=== PATIENT | female | born 1995 | race Caucasian/White ===

== ENCOUNTER 2019-01-11 16:15 | Inpatient (IN) | payer OTHER, MEDICAID ==
[~2019-01-11] VITALS: Ht 165.1 cm; Wt 55.0 kg
[2019-01-11] MEDS ORDERED: SUCCINYLCHOLINE CHLORIDE 20 MG/ML 10ML VIAL IV ONE (16:20)
[2019-01-11] MEDS ORDERED: ETOMIDATE (2MG/ML) 20ML VIAL IV ONE (16:20)
[2019-01-11] MEDS ORDERED: MIDAZOLAM DRIP 50 mg/50mL 50 ML IV ONE (16:23)
[2019-01-11] MEDS ORDERED: NOREPINEPHRINE 8 MG/250ML KIT 250 ML IV ONE (16:25)
[2019-01-11 16:29] VITALS: BP 68/45
[2019-01-11] MEDS: MIDAZOLAM DRIP 50 mg/50mL 50 ML IV SCH ×2 (16:30→22:00)
[2019-01-11] MEDS: NOREPINEPHRINE 8 MG/250ML KIT 250 ML IV SCH (16:30)
[2019-01-11] MEDS ORDERED: LORazepam 2MG/ML-1ML VIAL ONE (16:43)
[2019-01-11] MEDS ORDERED: SODIUM CHLORIDE 0.9% 1,000 ML IV ONE ×3 (16:47→18:30)
[2019-01-11] MEDS ORDERED: PROPOFOL 100 ML IV ONE (16:55)
[2019-01-11] MEDS ORDERED: ACETAMINOPHEN 650 mg PER 20 mL UD ONE (16:58)
[2019-01-11] MEDS ORDERED: LEVETIRACETAM INJ 500 MG in D5W 5% 100 ML IV ONE (17:00)
[2019-01-11] MEDS: PROPOFOL 100 ML IV SCH ×2 (17:01→22:00)
[2019-01-11] MEDS ORDERED: ACETAMINOPHEN 650 mg PER 20 mL UD GT ONE (17:15)
[2019-01-11] MEDS ORDERED: LORazepam 2MG/ML-1ML VIAL IV ONE (17:15)
[2019-01-11 17:20] LABS: Basophils # (auto) 0.1 uL; Basophils % (auto) 0.5 % (0.0-2.0); Eosinophils # (auto) 0 uL; Eosinophils % (auto) 0.1 % (0.0-7.0); Hematocrit 40.1 % (36.0-46.0); Hemoglobin 13.3 g/dL (12.2-16.2); Lymphocytes # (auto) 1.5 uL; Lymphocytes % (auto) 14.9 % (10.0-50.0); Mean Corpuscular Hgb Conc. 33.2 g/dL (32.0-36.0); Mean Corpuscular Volume 90.4 fL (80.0-100.0); Monocytes # (auto) 0.4 uL; Monocytes % (auto) 3.5 % (0.0-12.0); Neutrophils # (auto) 8.4 uL; Platelet Count (auto) 329 10^3/uL (140-450); Red Blood Cells 4.44 10^6/uL (4.0-5.20); Red Cell Distribution Width 13.6 % (11.8-14.3); White Blood Cell 10.4 10^3/uL (4.4-10.8)
[2019-01-11 17:34] LABS: INR 1.11 (0.9-1.15); Partial Thromboplastin Time 22.4 sec (23.64-32.05)
[2019-01-11 17:38] LABS: Alanine Aminotransferase 28 U/L (13-56); Albumin 3.7 g/dL (3.4-5.0); Anion Gap 11 (5-15); Aspartate Aminotransferase 24 U/L (15-37); BUN/Creatinine Ratio 10.1; Blood Urea Nitrogen 15 mg/dL (7-18); Calcium 8.5 mg/dL (8.5-10.1); Carbon Dioxide 18 mmol/L (21-32); Chloride 115 mmol/L (98-107); GFR African American 57 mL/min; GFR Non-African American 47 mL/min; Glucose 68 mg/dL (74-106); Potassium 4.2 mmol/L (3.5-5.1); Sodium 144 mmol/L (136-145)
[2019-01-11 17:40] LABS: Alkaline Phosphatase 97 U/L (45-117); Bilirubin, Total 0.9 mg/dL (0.2-1.0); Total Protein 7.5 g/dL (6.4-8.2)
[2019-01-11 17:41] LABS: Salicylate < 1.7 mg/dL (2.8-20.0)
[2019-01-11 17:43] LABS: Lactic Acid w/Reflex 3.4 mmol/L (0.4-2.0)
[2019-01-11 17:49] LABS: Acetaminophen < 2.0 ug/mL (10-30)
[2019-01-11 17:51] LABS: Urine Bacteria FEW /hpf (None Seen); Urine Blood 2+ /uL (Negative); Urine Hyaline Cast FEW /lpf (0 - 2); Urine Mucus FEW (None Seen); Urine Specific Gravity 1.021 (1.001-1.035); Urine WBC <1 /hpf (0 - 5)
[2019-01-11 18:00] LABS: Amphetamine Screen, Urine POSITIVE (NEGATIVE); Barbiturate Scree,Urine NEGATIVE (NEGATIVE); Benzodiazephine Screen, Urine POSITIVE (NEGATIVE); Cannabinoid Screen, Urine NEGATIVE (NEGATIVE); Cocaine Screen, Urine NEGATIVE (NEGATIVE); Opiate Scree,Urine NEGATIVE (NEGATIVE); Phencyclidine Screen, Urine NEGATIVE (NEGATIVE)
[2019-01-11] MEDS ORDERED: ACETAMINOPHEN 650 MG RECT SUPP PR PRN (18:00)
[2019-01-11] MEDS: SODIUM BICARBONATE 50ML VIAL 50 ML in SOD CHL 0.45% 1,000 ML IV SCH (18:00)
[2019-01-11 18:23] VITALS: BP 127/75
[2019-01-11 20:03] VITALS: BP 110/64
[2019-01-11 20:51] VITALS: BP 110/64
[2019-01-11 22:05] VITALS: BP 125/81
[2019-01-11 22:43] LABS: Albumin 3.3 g/dL (3.4-5.0); Potassium 3.8 mmol/L (3.5-5.1)
[2019-01-11] MEDS: FAMOTIDINE (10MG/ML) 2ML VL IV SCH (22:44)
[2019-01-11 22:58] LABS: Bilirubin, Total 1.2 mg/dL (0.2-1.0); Total Protein 6.6 g/dL (6.4-8.2)
[2019-01-11 23:56] VITALS: BP 108/71
[2019-01-12] VITALS (79 sets, daily range): BP systolic 98–131; BP diastolic 63–89
[2019-01-12] MEDS: SODIUM BICARBONATE 50ML VIAL 50 ML in SOD CHL 0.45% 1,000 ML IV SCH ×3 (03:16→21:33)
[2019-01-12] MEDS ORDERED: ACETYLCYSTEINE 200MG/ML IV SOL 150 MG in D5W 5% 250 ML IV ONE (05:00)
[2019-01-12] MEDS ORDERED: ACETYLCYSTEINE 6GM/30ml (200mg/ml) IV SOLN 30ML IV ONE (05:20)
[2019-01-12] MEDS: PROPOFOL 100 ML IV SCH ×3 (05:48→21:33)
[2019-01-12] MEDS ORDERED: ACETYLCYSTEINE IV ONE (06:00)
[2019-01-12] MEDS ORDERED: D5W 5% IV ONE (06:00)
[2019-01-12] MEDS ORDERED: D5W 5% IV SCH ×3 (07:15→10:00)
[2019-01-12] MEDS ORDERED: ACETYLCYSTEINE IV SCH ×3 (07:15→10:00)
[2019-01-12 08:11] LABS: Basophils # (auto) 0 uL; Basophils % (auto) 0.4 % (0.0-2.0); Eosinophils # (auto) 0 uL; Eosinophils % (auto) 0.2 % (0.0-7.0); Hematocrit 39.2 % (36.0-46.0); Hemoglobin 13.2 g/dL (12.2-16.2); Lymphocytes # (auto) 1.6 uL; Lymphocytes % (auto) 18.5 % (10.0-50.0); Mean Corpuscular Hemoglobin 30.6 pg (28.0-32.0); Mean Corpuscular Hgb Conc. 33.6 g/dL (32.0-36.0); Monocytes # (auto) 0.2 uL; Monocytes % (auto) 2.2 % (0.0-12.0); Neutrophils # (auto) 6.9 uL; Neutrophils % (auto) 78.7 % (37.0-80.0); Platelet Count (auto) 199 10^3/uL (140-450); White Blood Cell 8.8 10^3/uL (4.4-10.8)
[2019-01-12 08:28] LABS: INR 1.35 (0.9-1.15); Partial Thromboplastin Time 25.5 sec (23.64-32.05)
[2019-01-12 08:33] LABS: BUN/Creatinine Ratio 14.5; Calcium 7.3 mg/dL (8.5-10.1); Potassium 3.2 mmol/L (3.5-5.1)
[2019-01-12 08:35] LABS: Bilirubin, Total 1.7 mg/dL (0.2-1.0); Total Protein 6.2 g/dL (6.4-8.2)
--- NOTE | 2019-01-12 08:42 | NUR ---
FAMILY MOTHER UPDATED ON PATIENT STATUS. ALL QUESTIONS AND CONCERNS ADDRESSED AT THIS TIME
[2019-01-12] MEDS: FAMOTIDINE (10MG/ML) 2ML VL IV SCH ×2 (10:05→22:08)
[2019-01-12] MEDS: MIDAZOLAM DRIP 50 mg/50mL 50 ML IV SCH ×4 (11:11→22:09)
[2019-01-12] MEDS ORDERED: ACETAMINOPHEN 650 MG RECT SUPP PR PRN (11:30)
[2019-01-12] MEDS ORDERED: POTASSIUM EFFERVESENT TAB 25 MEQ GT ONE (11:30)
--- NOTE | 2019-01-12 11:39 | NUR ---
FAMILY MOTHER, FATHER, AND SISTER AT BEDSIDE
--- NOTE | 2019-01-12 11:41 | NUR ---
DR. GALLEGOS AT BEDSIDE
--- NOTE | 2019-01-12 12:48 | NUR ---
ACETYLCYSTINE PER POISON CONTROL MAY STOP DRIP. DR. GALLEGOS MADE AWARE
--- NOTE | 2019-01-12 12:54 | NUR ---
MEDICATION RECONCILIATION UNABLE TO OBTAIN HOME MEDICATIONS. PER MOTHER WILL LOOK FOR HOME MEDICATIONS AND BRING IN ANY THAT ARE FOUND
[2019-01-12] MEDS: ACETAMINOPHEN 500 MG TAB PO PRN (16:12)
[2019-01-12] MEDS: NOREPINEPHRINE 8 MG/250ML KIT 250 ML IV SCH (17:05)
[2019-01-12] MEDS: fentaNYL Drip 2500mCg/250mlNS 250 ML IV SCH ×2 (17:40→17:53)
--- NOTE | 2019-01-12 19:25 | NUR ---
OPEN REPORT RECEIVED REPORT ON FULL CODE ICU PATIENT FROM DAY SHIFT NURSE. PATIENT IS INTUBATED AND SEDATED ON PROPOFOL AND VERSED. TO SEE GTT'S AND THEIR TITRATIONS PLEASE SEE IV SPREAD SHEET. TRIPLE LUMEN CENTRAL RIGHT INTERNAL JUGULAR CATHETER IS ASYMPTOMATIC, DRESSING IS CLEAN AND INTACT. OGT IN PLACE THAT IS CLAMPED. REESE HUNG BELOW BLADDER FREE OF KINKS DRAINING CLEAR YELLOW URINE TO GRAVITY. PATIENT DOES HAVE NOSE AND BILATERAL NIPPLE PIERCINGS. FOR MORE INFORMATION PLEASE SEE PHYSICAL ASSESSMENT. FALL AND SAFETY PRECAUTIONS ARE IN PLACE. BED SET TO LOWEST POSITION WITH 3X SIDE RALES UP. VITAL SIGNS STABLE.
--- NOTE | 2019-01-12 20:00 | NUR ---
SEDATION VACATION HELD PROPOFOL 2132 PATIENT BECAME RESTLESS WITH CONTINUOUS MOVEMENTS. WAS ABLE TO FOLLOW COMMANDS. WAS RE-STARTED ON PROPOFOL.
[2019-01-13] VITALS (104 sets, daily range): BP systolic 84–112; BP diastolic 44–81
--- NOTE | 2019-01-13 02:00 | NUR ---
BATH BED BATH GIVEN, PATIENT TOLERATED WILL. PARTIAL LINEN CHANGE AT THIS TIME.
[2019-01-13] MEDS: MIDAZOLAM DRIP 50 mg/50mL 50 ML IV SCH ×6 (03:50→23:06)
[2019-01-13 05:03] LABS: Basophils # (auto) 0 uL; Basophils % (auto) 0.3 % (0.0-2.0); Eosinophils # (auto) 0 uL; Eosinophils % (auto) 0.1 % (0.0-7.0); Hematocrit 41.9 % (36.0-46.0); Hemoglobin 14.2 g/dL (12.2-16.2); Lymphocytes # (auto) 0.8 uL; Lymphocytes % (auto) 7.3 % (10.0-50.0); Mean Corpuscular Hemoglobin 30.7 pg (28.0-32.0); Mean Corpuscular Volume 90.5 fL (80.0-100.0); Monocytes # (auto) 0.2 uL; Monocytes % (auto) 1.5 % (0.0-12.0); Neutrophils # (auto) 10.2 uL; Neutrophils % (auto) 90.8 % (37.0-80.0); Nucleated Red Blood Cells % 0.1 %; Platelet Count (auto) 170 10^3/uL (140-450); Red Blood Cells 4.63 10^6/uL (4.0-5.20); Red Cell Distribution Width 13.6 % (11.8-14.3); White Blood Cell 11.3 10^3/uL (4.4-10.8)
[2019-01-13 05:09] LABS: INR 1.55 (0.9-1.15); Partial Thromboplastin Time 28.8 sec (23.64-32.05)
[2019-01-13 05:35] LABS: Albumin 2.9 g/dL (3.4-5.0); BUN/Creatinine Ratio 10.5; Bilirubin, Total 2.2 mg/dL (0.2-1.0); Calcium 7.8 mg/dL (8.5-10.1); Total Protein 6.3 g/dL (6.4-8.2)
[2019-01-13 05:46] LABS: Potassium 2.9 mmol/L (3.5-5.1)
--- NOTE | 2019-01-13 05:59 | NUR ---
CRITICAL LAB VALUE K 2.9 PAGED HOSPITALIST, AWAITING CALL BACK
[2019-01-13] MEDS: PROPOFOL 100 ML IV SCH ×2 (06:18→15:51)
[2019-01-13] MEDS: SODIUM BICARBONATE 50ML VIAL 50 ML in SOD CHL 0.45% 1,000 ML IV SCH (06:22)
--- NOTE | 2019-01-13 06:30 | NUR ---
RE-PAGED HOSPITALIST AWAITING CALL BACK
--- NOTE | 2019-01-13 07:08 | NUR ---
END OF SHIFT GAVE REPORT OF FULL CODE ICU PATIENT TO DAY SHIFT RN. INFORMED RN THAT HOSPITALIST HAS NOT CALLED BACK ON POTASSIUM LEVEL. BED SET TO LOWEST POSITION. ALL SAFETY PRECAUTIONS IN PLACE.
--- NOTE | 2019-01-13 08:07 | NUR ---
POTASSIUM AND BLOOD SUGAR LEVEL HOSPITALIST PAGED TO NOTIFY OF POTASSIUM LEVEL AND BLOOD SUGAR LEVEL. AWAITING CALLBACK
[2019-01-13] MEDS ORDERED: DEXTROSE 50% SYRINGE 50 ML IV ONE (08:50)
[2019-01-13] MEDS: POTASSIUM CHL 20MEQ/100ML 100 ML IV SCH ×2 (08:59→10:40)
[2019-01-13] MEDS ORDERED: DEXTROSE (50%) 50ML SYRG IV ONE (09:00)
[2019-01-13] MEDS ORDERED: D5W/SOD CHL 0.45% 1,000 ML IV SCH (09:00)
--- NOTE | 2019-01-13 09:21 | NUR ---
POISON CONTROL UPDATED ON PATIENT STATUS.
[2019-01-13] MEDS: FAMOTIDINE (10MG/ML) 2ML VL IV SCH ×2 (09:27→21:47)
[2019-01-13 10:41] LABS: Hepatitis A Ab IgM Negative; Hepatitis B Core IgM Negative; Hepatitis B Surface Antigen Negative (Negative)
[2019-01-13 10:42] LABS: Hepatitis C Antibody Negative (Negative)
--- NOTE | 2019-01-13 10:49 | NUR ---
FAMILY AT BEDSIDE. UPDATED ON PATIENT STATUS. ALL QUESTIONS AND CONCERNS ADDRESSED AT THIS TIME
--- NOTE | 2019-01-13 11:59 | NUR ---
DR. GALLEGOS AT BEDSIDE
[2019-01-13] MEDS ORDERED: Jevity 1.2 Cal/Fiber 1 Liter GT SCH (12:00)
[2019-01-13 14:07] LABS: BUN/Creatinine Ratio 7.7; Calcium 7.8 mg/dL (8.5-10.1); Potassium 4.4 mmol/L (3.5-5.1)
[2019-01-13] MEDS: D5W/SOD CHL 0.45%/KCL 40MEQ 1,000 ML IV SCH (14:45)
[2019-01-13] MEDS: PIPERACILLIN-TAZOB 3.375GM 100 ML IV SCH ×2 (14:45→21:47)
--- NOTE | 2019-01-13 16:43 | NUR ---
PARTIAL LINEN CHANGE PERFORMED AT THIS TIME
[2019-01-13] MEDS: NOREPINEPHRINE 8 MG/250ML KIT 250 ML IV SCH (17:05)
[2019-01-13] MEDS: fentaNYL Drip 2500mCg/250mlNS 250 ML IV SCH (17:53)
--- NOTE | 2019-01-13 19:11 | NUR ---
REPORT GIVEN TO JEB LOPEZ TO ASSUME CARE
--- NOTE | 2019-01-13 21:47 | NUR ---
OGT FEEDING OGT FEEDING STARTED WITH JEVITY @ 20 ML/HR INITIALLY, PATENCY CHECKED PRIOR TO FEEDING.
--- NOTE | 2019-01-13 21:54 | NUR ---
TEMP 100.4, COOLING MEASURES DONE
[2019-01-14] VITALS (102 sets, daily range): BP systolic 90–137; BP diastolic 53–95
--- NOTE | 2019-01-14 00:14 | NUR ---
RECEIVED A CALL FROM PT'S MOTHER, UPDATED ON PT'S STATUS AFTER OBTAINING A PASSWORD.
[2019-01-14] MEDS: D5W/SOD CHL 0.45%/KCL 40MEQ 1,000 ML IV SCH ×4 (01:18→23:26)
[2019-01-14] MEDS: ACETAMINOPHEN 500 MG TAB PO PRN (03:39)
--- NOTE | 2019-01-14 03:40 | NUR ---
TEMP 101.1 ,TYLENOL 500MG GIVEN PER OGT. COOLING MEASURES CONTINUED.
--- NOTE | 2019-01-14 03:42 | NUR ---
OGT RESIDUALS, 50 ML, TF HELD.
[2019-01-14 04:22] LABS: Basophils # (auto) 0 uL; Basophils % (auto) 0.2 % (0.0-2.0); Eosinophils # (auto) 0.1 uL; Eosinophils % (auto) 0.4 % (0.0-7.0); Hemoglobin 14.3 g/dL (12.2-16.2); Lymphocytes # (auto) 0.7 uL; Lymphocytes % (auto) 4.9 % (10.0-50.0); Mean Corpuscular Hemoglobin 30.7 pg (28.0-32.0); Mean Corpuscular Volume 90.1 fL (80.0-100.0); Monocytes # (auto) 0.2 uL; Monocytes % (auto) 1.4 % (0.0-12.0); Neutrophils % (auto) 93.1 % (37.0-80.0); Nucleated Red Blood Cells % 0.2 %; Platelet Count (auto) 176 10^3/uL (140-450); Red Blood Cells 4.66 10^6/uL (4.0-5.20); Red Cell Distribution Width 13.6 % (11.8-14.3)
[2019-01-14 04:57] LABS: Albumin 2.6 g/dL (3.4-5.0); BUN/Creatinine Ratio 7.2; Bilirubin, Total 2.1 mg/dL (0.2-1.0); Calcium 7.8 mg/dL (8.5-10.1); Total Protein 6.2 g/dL (6.4-8.2)
--- NOTE | 2019-01-14 05:00 | NUR ---
AM HYGIENE AND ORAL CARE DONE. REPOSITIONED FOR COMFORT.
--- NOTE | 2019-01-14 05:37 | NUR ---
TEMP STILL 101.1, PLACED ON COOLING BLANKET
[2019-01-14] MEDS: PIPERACILLIN-TAZOB 3.375GM 100 ML IV SCH ×3 (05:39→21:25)
--- NOTE | 2019-01-14 07:00 | NUR ---
LATEST TEMP 99.7
--- NOTE | 2019-01-14 07:18 | NUR ---
COOLING MEASURES IN PLACE
[2019-01-14] MEDS: MIDAZOLAM DRIP 50 mg/50mL 50 ML IV SCH ×3 (09:02→23:27)
--- NOTE | 2019-01-14 09:05 | NUR ---
FAMILY UPDATED ON PATIENT STATUS. ALL QUESTIONS AND CONCERNS ADDRESSED AT THIS TIME
[2019-01-14] MEDS: FAMOTIDINE (10MG/ML) 2ML VL IV SCH ×2 (09:39→21:25)
--- NOTE | 2019-01-14 10:31 | NUR ---
DR. BENJAMIN AT BEDSIDE
--- NOTE | 2019-01-14 11:29 | NUR ---
WOUND CARE NURSE AT BEDSIDE TO ASSESS PATIENT
--- NOTE | 2019-01-14 11:29 | NUR ---
NUTRITION ASSESSMENT NOTES Please refer to link notes of nutrition screen form filed under the intervention section of the plan of care for further details. Est. Needs: 1550 kcal to 1850 kcal (25-30 kcal/kgBW), 62 gms to 74 gms pro (1.0-1.2 gms/kgBW). Will continue to monitor pertinent labs and reassess nutrient need prn Thank you. Addendum: 01/14/19 at [address] Amended: Links added.
--- NOTE | 2019-01-14 11:35 | NUR ---
WOUND CARE NOTE: Wound care in to see patient for skin assessment due to intubation status and low Louis score of 12, putting patient to high risk for skin breakdown. Patient is 23 y/o female with admitting diagnosis of Drug Overdose. Patient is resting in ICU bed in Rm. 112. Patient is intubated, sedated, and mechanically ventilated. Patient appears to be in no pain using Gunn Khan Faces Pain Scale. Skin assessment done with the assistance of patient's nurse JESSICA Rosario. No wound noted other than intact 2x1cm oval light brown pigmented skin to distal L medial forearm appears to be a carlos eduardo; area is clean and dry, left open to air. No pressure injury noted. Repositioned patient for comfort facing her Lt side, redistributed pressure points with pillows. Reapplied [place] foam boots to patient's BLE. Patient tolerated well. JESSICA Rosario at bedside. RECOMMENDATIONS: BID/PRN cleaning cleaning and application of Barrier cream to sacral/buttocks as preventative per MD order, Dietary consult for low Louis score, frequent turning and repositioning schedule as condition permits, redistribute pressure points with pillows, elevate heels on pillows/foam boots to BLE, continue monitoring by wound care while patient is mechanically ventilated. Addendum: 01/14/19 at 1514 by Sharlene Nsah RN Amended: Links added.
[2019-01-14] MEDS: PROPOFOL 100 ML IV SCH ×2 (15:17)
--- NOTE | 2019-01-14 16:18 | NUR ---
PARTIAL LINEN CHANGE PERFORMED AT THIS TIME
[2019-01-14] MEDS: NOREPINEPHRINE 8 MG/250ML KIT 250 ML IV SCH (17:05)
--- NOTE | 2019-01-14 17:10 | NUR ---
assessment Patient is a 23 year old female who is on a vent. No family at bedside. I will try and call patients mother Kaylie for assessment. Patients post discharge needs to be determined after extubation. Addendum: 01/14/19 at 1711 by Payal KIM Amended: Links added.
[2019-01-14] MEDS: fentaNYL Drip 2500mCg/250mlNS 250 ML IV SCH (17:53)
--- NOTE | 2019-01-14 19:11 | NUR ---
REPORT GIVEN TO JEB LOPEZ TO ASSUME CARE
--- NOTE | 2019-01-14 19:15 | NUR ---
OPENING NOTES ASSUMED CARE, LAYING ON BED WITH HER EYES CLOSED, STILL ON VENT, AC MODE, SEDATION WITH VERSED AND PROPOFOL INFUSING IN THE RIGHT IJ, OGT IN PLACE, TF ON HOLD, REESE CATHETER DRAINING TO A CLEAR LIGHT BRUNA URINE. BED IN LOWEST POSITION WITH SIDE RAILS UP, BED ALARM ON. WILL CONTINUE CARE.
--- NOTE | 2019-01-14 20:00 | NUR ---
OGT RESIDUAL, ABOUT 30 ML, HELD TF.
--- NOTE | 2019-01-14 21:01 | NUR ---
FAMILY AT BEDSIDE, UPDATED ON PT'S STATUS
[2019-01-15] VITALS (101 sets, daily range): BP systolic 88–123; BP diastolic 45–88
--- NOTE | 2019-01-15 04:00 | NUR ---
GASTRIC RESIDUAL OF 60 ML FROM OGT NOTED. TF STILL ON HOLD
--- NOTE | 2019-01-15 04:00 | NUR ---
MORNING CARE DONE, COMPLETE LINENS CHANGED. REPOSITIONED FOR COMFORT. ORAL CARE DONE.
[2019-01-15 04:23] LABS: Basophils # (auto) 0 uL; Basophils % (auto) 0.3 % (0.0-2.0); Eosinophils # (auto) 0.1 uL; Hematocrit 41.4 % (36.0-46.0); Hemoglobin 13.8 g/dL (12.2-16.2); Lymphocytes # (auto) 1.2 uL; Lymphocytes % (auto) 9.3 % (10.0-50.0); Mean Corpuscular Hemoglobin 30.2 pg (28.0-32.0); Mean Corpuscular Hgb Conc. 33.3 g/dL (32.0-36.0); Mean Corpuscular Volume 90.6 fL (80.0-100.0); Monocytes # (auto) 0.4 uL; Neutrophils # (auto) 11.5 uL; Neutrophils % (auto) 86.4 % (37.0-80.0); Platelet Count (auto) 200 10^3/uL (140-450); Red Blood Cells 4.58 10^6/uL (4.0-5.20); White Blood Cell 13.3 10^3/uL (4.4-10.8)
[2019-01-15 04:45] LABS: Albumin 2.4 g/dL (3.4-5.0); BUN/Creatinine Ratio 7.3; Calcium 7.8 mg/dL (8.5-10.1); INR 1.07 (0.9-1.15); Partial Thromboplastin Time 56.2 sec (23.64-32.05); Potassium 3.8 mmol/L (3.5-5.1)
[2019-01-15 04:54] LABS: Bilirubin, Total 1.6 mg/dL (0.2-1.0); Total Protein 6.1 g/dL (6.4-8.2)
[2019-01-15] MEDS: PIPERACILLIN-TAZOB 3.375GM 100 ML IV SCH ×3 (06:32→22:00)
--- NOTE | 2019-01-15 08:00 | NUR ---
INITIAL/ONGOING ASSESSMENT: Patient currently sedated as per documented in IV spreadsheet, tolerating mechanical ventilation. Catheter care provided, noted white vaginal discharge probable yeast infection; will address with physician during rounds. Patient with no signs of distress at this time.
--- NOTE | 2019-01-15 08:49 | NUR ---
FAMILY PHONE CALL: Spoke with patient's mother Kaylie via phone call, password verified. Inquired on patient condition. Discussed with Kaylie plan of care for the day to include sedation vacation to assess neurological status, informed her that the Levophed drip had been titrated down with a goal to titrate off by end of shift as tolerated. Verbalized understanding, states that they will be in to visit in a few hours.
--- NOTE | 2019-01-15 10:00 | NUR ---
VERSED OFF: Titrated patient off of Versed.
[2019-01-15] MEDS: D5W/SOD CHL 0.45%/KCL 40MEQ 1,000 ML IV SCH (10:07)
[2019-01-15] MEDS: FAMOTIDINE (10MG/ML) 2ML VL IV SCH ×2 (10:07→22:00)
--- NOTE | 2019-01-15 10:49 | NUR ---
POISON CONTROL: Received call from poison control for update on patient condition. Updated on neurological status, informed them that patient remains non-responsive; however, Versed was titrated off today and patient remains on low dose diprivan. Current vital signs, as well as LFT's and CO2 and creatine levels provided. Recommendation is continue supportive care and to continue to titrate off of sedation as appropriate.
--- NOTE | 2019-01-15 13:12 | NUR ---
FAMILY: Patient's mother, father and sister at bedside. Updated on condition, informed them that patient is off of Versed and only on low dose Diprivan, as well as low dose Levo. Discussed plan to leave patient off of Versed and use other sedation medication if needed. Family expressed concern with possibility of patient's friends attempting to come to visit posing as family, assured them that every measure will be taken to ensure only the family members present are granted access for visitation. Discussed with family suicide precautions if and when patient is successfully weaned from the ventilator, also discussed with them tele psychiatric evaluation when patient is coherent. Family verbalized understanding of all topics discussed.
--- NOTE | 2019-01-15 14:30 | NUR ---
AT BEDSIDE: Dr. Mendoza at bedside, spoke with patient's parents. Patient currently off of sedation, verbal order received to perform weaning trial if patient becomes awake.
[2019-01-15] MEDS: NOREPINEPHRINE 8 MG/250ML KIT 250 ML IV SCH (17:05)
[2019-01-15] MEDS: PROPOFOL 100 ML IV SCH (17:05)
[2019-01-15] MEDS: fentaNYL Drip 2500mCg/250mlNS 250 ML IV SCH (17:53)
[2019-01-15] MEDS ORDERED: FLUCONAZOLE 200MG/100ML 100 ML IV ONE ×2 (20:15→22:00)
--- NOTE | 2019-01-15 20:30 | NUR ---
pt has slightly elevated temp cooling measures in place. will monitor
--- NOTE | 2019-01-15 21:15 | NUR ---
pt temp is elevated additional cooling measures cooling blanket is in place. will monitor
--- NOTE | 2019-01-15 23:00 | NUR ---
family at bedside pts mother and father at bedside, all of their questions and concerns have been addressed at this time. parents verbalized understanding and stated no other questions right now.
--- NOTE | 2019-01-15 23:30 | NUR ---
cooling measures are working will continue to Monitor
[2019-01-16] VITALS (95 sets, daily range): BP systolic 91–138; BP diastolic 52–92
--- NOTE | 2019-01-16 01:15 | NUR ---
hygiene pt was given a full bed bath and linin change. pt tolerated care. will continue to care for and monitor
--- NOTE | 2019-01-16 01:15 | NUR ---
cooling measures are working, pt temp is wnl
--- NOTE | 2019-01-16 03:15 | NUR ---
HYGIENE FULL MALISSA CHANGED, PT TOLERATED CARE. NO SS OF DISTRESS NOTED AT THIS TIME.WILL CONTINUE TO MONITOR. Addendum: 01/17/19 at 0528 by LEONIE GARRIDO RN RN WRONG DATE ENTERED
--- NOTE | 2019-01-16 03:17 | NUR ---
sister called sister naila called provided password and was given an update on pts status. star states no other questions.
[2019-01-16 03:37] LABS: Basophils # (auto) 0 uL; Basophils % (auto) 0.3 % (0.0-2.0); Eosinophils # (auto) 0 uL; Eosinophils % (auto) 0.5 % (0.0-7.0); Hematocrit 39.5 % (36.0-46.0); Hemoglobin 13.4 g/dL (12.2-16.2); Lymphocytes # (auto) 1.2 uL; Lymphocytes % (auto) 13.5 % (10.0-50.0); Mean Corpuscular Hemoglobin 30.7 pg (28.0-32.0); Mean Corpuscular Volume 90.2 fL (80.0-100.0); Monocytes # (auto) 0.6 uL; Monocytes % (auto) 6.9 % (0.0-12.0); Neutrophils # (auto) 6.9 uL; Neutrophils % (auto) 78.8 % (37.0-80.0); Platelet Count (auto) 223 10^3/uL (140-450); Red Blood Cells 4.38 10^6/uL (4.0-5.20); Red Cell Distribution Width 14.1 % (11.8-14.3); White Blood Cell 8.8 10^3/uL (4.4-10.8)
[2019-01-16 03:51] LABS: Albumin 2.4 g/dL (3.4-5.0); Calcium 8.4 mg/dL (8.5-10.1); Magnesium 2.1 mg/dL (1.6-2.6); Potassium 4.1 mmol/L (3.5-5.1)
[2019-01-16 04:00] LABS: BUN/Creatinine Ratio 8.1; Bilirubin, Total 1.4 mg/dL (0.2-1.0); Phosphorus 2.7 mg/dL (2.5-4.90); Total Protein 6.6 g/dL (6.4-8.2)
--- NOTE | 2019-01-16 04:09 | NUR ---
rt is at bedside
--- NOTE | 2019-01-16 09:33 | NUR ---
Resumed care at 0730, orders reviewed and ongoing assessments being done. Being treated for multiple problems and remains intubated. Sedation weaned off yesterday. Does withdraw while rendering care and attempts to open eyelids when spoken to, but not able to follow any other directions. Levophed infusing for BP support, will titrate as appropriate. If awakens and is a candidate for CPAP trial, will initiate. Tube feeding turned off. Residual check, full syringe 100ml. Will maintain off for now. Parents Kaylie and Agapito have arrived to visit. Updated them on plan of care.
[2019-01-16] MEDS: FAMOTIDINE (10MG/ML) 2ML VL IV SCH ×2 (10:22→21:57)
--- NOTE | 2019-01-16 12:16 | NUR ---
Nutrition Follow-up Notes Wt.: 64.7 kg today. Pt's intubated, non-sedated, currently NPO with EN support temporarily held this morning for possible CPAP trial. Pt's previously on Jevity 1.2 Sam @ 20 ml/hr providing 576 kcal, 27 gms pro [id number] ml free water. Noted pt's for active Cardiology and GI consults. Est. Needs: 1550 kcal to 1850 kcal (25-30 kcal/kgBW), 62 gms to 74 gms pro (1.0-1.2 gms/kgBW). Will continue to monitor pertinent labs and reassess nutrient need prn Labs: Cl 109 H, BUN 5 L, Ca 8.4 L, Tot mychal 1.4 H, AST 173 H, ALT 1587 H, ALP 198 H, Creatine kinase 232 H, Alb 2.4 L Skin: Louis scale 12, high risk, skin intact per collision repair technician. GI: Pt's no bowel activity since 01/11/19 per collision repair technician. PES: Increased nutrient needs r/t current medical condition aeb intubated, sedated, mod hypoalbuminemia, NPO with EN support. Altered nutrition related lab values r/t current/chronic medical condition aeb hyperchloremia, low BUN, elev. LFTs, Creatine kinase,hyperbilirubinemia, hypocalcemia and mod hypoalbuminemia Will continue to monitor NPO status, skin status, pertinent labs and weight trend. F/u in 2 to 3 days. Rec.: 1.) Advance gradually to oral diet (Soft Low Fat) when medically appropriate. 2.) If still NPO, consider to resume EN support at lower rate of Jevity 1.2 Sam @ 55 ml/hr goal rate as tolerated when medically appropriate. 3.) If Albumin continues trending down, consider Prostat 1 pkt BID. 4.) Refer to RD for further nutrition educ. and weight monitoring upon discharge. 5.) Continue current plan of care.
--- NOTE | 2019-01-16 12:44 | NUR ---
Q2 assessments, moving more in bed and when ask to open eyes, eyes are opening wider, but unable to sustain eye contact or follow any other instructions. Maintaining cooling measures (cooling blanket and cold compress on head). Rectal probe in place with temperature measuring 99.9-100.1. Parents back in to visit.
[2019-01-16] MEDS: PIPERACILLIN-TAZOB 3.375GM 100 ML IV SCH ×3 (13:44→21:57)
--- NOTE | 2019-01-16 14:45 | NUR ---
DR. Mendoza was in to round for Dr. Mccoy today. Parents Kaylie and Agapito at bedside. Discussed condition and plan of care. Remains sleepy and continues to open eyes when ask to but not staying awake. Spoke with Jannie via phone from poison control and gave update on condition. Continue current plan of care. They will follow up daily.
[2019-01-16] MEDS: D5W/SOD CHL 0.45%/KCL 40MEQ 1,000 ML IV SCH ×3 (15:12→20:00)
[2019-01-16] MEDS: MIDAZOLAM DRIP 50 mg/50mL 50 ML IV SCH (17:05)
[2019-01-16] MEDS: PROPOFOL 100 ML IV SCH (17:05)
[2019-01-16] MEDS: NOREPINEPHRINE 8 MG/250ML KIT 250 ML IV SCH (17:05)
--- NOTE | 2019-01-16 17:09 | NUR ---
Cool bath given and changed partial linen. Rectal probe measuring 99.1-99.9. No skin breakdown, both upper arms markedly red, no change since arrival of shift. Noted very small abrasion to right and left lower lip due to EET. Maintaining cooling measures. Continues to open eyes on command, but no sustain eye contact. She does squeeze hand on command, strong left and right legal associate. Reorient to staff, place and situation. Parents have left for the day.
[2019-01-16] MEDS: fentaNYL Drip 2500mCg/250mlNS 250 ML IV SCH (17:53)
--- NOTE | 2019-01-16 19:00 | NUR ---
OPEN ASSUMED CARE OF FEMALE PT LAYING IN BED ORALLY INTUBATED, NOT SEDATED. PT IS CONNECTED TO ICU MONITORS VS ARE STABLE. PT SPONTANEOUSLY OPENS EYES BUT DOES NOT KEEP THEM OPEN. PT HAS OGT CLAMPED. PT FOLLOWS COMMANDS. PT HAS A R IJ TRIPLE LUMEN CATH, IV IS PATENT, NO SS OF REDNESS OF SWELLING AT THIS TIME. DRESSING IS CLEAN AND DRY. PT HAS R FA IV, PATENT, FLUSHES WITHOUT RESISTANCE. DRESSING IS CLEAN AND DRY NO SS OF REDNESS OR SWELLING AT THIS TIME. PT HAS A RECTAL THERMOMETER IN PLACE. PT HAS REESE HANGING BELOW BLADDER, PATENT DRAINING BRUNA URINE TO GRAVITY. PT HAS PILLOWS IN PLACE UNDER [place] PROMINENCES TO OFFLOAD PRESSURE FOR COMFORT AND SAFETY. BED IS IN THE LOWEST POSITION, WHEELS ARE LOCKED, HOB 40*, PT IS IN VIEW OF RN STATION, WILL CONTINUE TO CARE FOR AND MONITOR.
--- NOTE | 2019-01-16 19:45 | NUR ---
FAMILY AT BEDSIDE
--- NOTE | 2019-01-16 23:40 | NUR ---
PT REMAINS IN BED VENTILATED PT REMAINS IN BED INTUBATED. NO SS OF DISTRESS NOTED AT THIS TIME. VS STABLE. WILL CONTINUE TO CARE FOR.
[2019-01-17] VITALS (41 sets, daily range): BP systolic 94–132; BP diastolic 58–94
--- NOTE | 2019-01-17 01:48 | NUR ---
COOLING MEASURES ARE IN PLACE PT HAS ELEVATED TEMP 99.8, COOLING MEASURES ARE IN PLACE. WILL CONTINUE TO CARE FOR AND MONITOR
--- NOTE | 2019-01-17 03:15 | NUR ---
HYGIENE FULL MALISSA CHANGED, PT TOLERATED CARE. NO SS OF DISTRESS NOTED AT THIS TIME.WILL CONTINUE TO MONITOR.
--- NOTE | 2019-01-17 05:30 | NUR ---
SUCTION CANISTERS AND TUBING CHANGED
[2019-01-17] MEDS: D5W/SOD CHL 0.45%/KCL 40MEQ 1,000 ML IV SCH ×2 (06:00→12:45)
[2019-01-17] MEDS: PIPERACILLIN-TAZOB 3.375GM 100 ML IV SCH ×2 (06:00→14:00)
--- NOTE | 2019-01-17 07:31 | NUR ---
END SHIFT PT VS STABLE, NO SS OF DISTRESS NOTED AT THIS TIME. REPORT AND CARE ENDORSED TO DAY RN.
--- NOTE | 2019-01-17 09:35 | NUR ---
Respiratory note: BILATERAL BS ARE CLEAR THROUGHOUT, SUCTION NOT INDICATED AT THIS TIME. FAMILY AT BEDSIDE. PT REMAINS GROGGY AND UNABLE TO FOLLOW RESPIRATORY COMMANDS TO ACHIEVE ADEQUATE WEANING PARAMETERS.UNABLE TO PROCEED WITH CPAP AT THIS TIME. ALARMS VERIFIED AND AUDIBLE. NO VENT CHANGES ORDERED AT THIS TIME, WILL CONTINUE TO MONITOR ORDERED.
[2019-01-17] MEDS: FAMOTIDINE (10MG/ML) 2ML VL IV SCH (10:20)
--- NOTE | 2019-01-17 11:44 | NUR ---
DR. PAYTONHA IN TO SEE PT. ORDERED FOR PT TO BE EXTUBATED. RT NOTIFIED, PT BEEN FOLLOWING COMMANDS SINCE THIS AM, BUT WAS A LITTLE WEAK TO BE PLACED ON CPAP. PT'S PARENTS WALKING IN DOWN HALLWAY AND ARE AWARE OF POC AND AGREE WITH POC . PT'S TUBE FEEDING HAS BEEN ON HOLD SINCE 0700.
--- NOTE | 2019-01-17 11:45 | NUR ---
Respiratory note: PT EXTUBATED PER DR GALLEGOS. PT PLACED ON 30% AEROSOL. NO STRIDOR NOTED. NO SIGNS OR SYMPTOMS OF RESPIRATORY DISTRESS. RN AND FAMILY AT BEDSIDE.
--- NOTE | 2019-01-17 12:00 | NUR ---
S/P EXTUBATION DOING WELL ON CM AT 30% FIO2. REPOSITIONED FOR COMFORT, PT'S PARENTS REMAIN AT BED SIDE. MITTENS REMOVED. PT IS CRYING. ENCOURAGED HER TO CRY. AND TO SAVE HER VOICE FOR LATER AND TO KEEP HER COOL MIST MASK ON FOR THE TIME BEING. PT NODDED HEAD IN AGREEMENT.
--- NOTE | 2019-01-17 12:45 | NUR ---
RECEIVED REPORT FROM KYRIE LOPEZ AND ASSUMED CARE OF PATIENT. PATIENT'S PARENTS AT BEDSIDE. PATIENT ALERT ET COOPERATIVE, SLOW TO RESPOND BUT FOLLOWS COMMANDS. PATIENT ORIENTED TO SELF ET AWARE HAS BEEN EXTUBATED. PATIENT NOTED TO BE RESTLESS, MOVING ALL EXTREMITIES WITHOUT DIFFICULTY. PUPILS 4MM ET BRISK. O2 ON PER COOL MIST MASK 30%. SEE PHYSICAL ASSESSMENT AND IV SPREADSHEET.
[2019-01-17] MEDS: fentaNYL Drip 2500mCg/250mlNS 250 ML IV SCH (13:27)
--- NOTE | 2019-01-17 13:33 | NUR ---
POISON CONTROL PHONES - UPDATED ON PATIENT CONDITION, STATES WILL SIGN OFF NOW THAT PATIENT IS EXTUBATED AND APPEARS IN STABLE CONDITION.
--- NOTE | 2019-01-17 13:45 | NUR ---
COOL MIST O2 REMOVED ET O2 APPLIED AT 2L PER NC - SAO2 100%. WILL CONTINUE TO MONITOR SAO2. FEW ICE CHIPS GIVEN - PATIENT NOTED TO HAVE DIFFICULTY SWALLOWING - COUGHING NOTED AFTERWARDS.
--- NOTE | 2019-01-17 15:17 | NUR ---
PATIENT'S PARENTS DEPART
--- NOTE | 2019-01-17 15:45 | NUR ---
SAO2 99-100% WITH O2 ON AT 2L PER NC. O2 REMOVED. PATIENT REMAINS RESTLESS. PATIENT MOUTHS WORDS ONLY WITH VERY FAINT WHISPERING - SPEECH INCOMPREHENSIBLE. NODS HEAD APPROPRIATELY TO YES, NO QUESTIONS. PATIENT CONTINUES TO COUGH WHEN VERY SMALL AMTS ICE CHIPS GIVEN. INTERVENTIONAL NURSE USING STRICT ASPIRATION PRECAUTIONS.
--- NOTE | 2019-01-17 16:40 | NUR ---
COUGHING WITH ICE CHIPS CONTINUES DESPITE STRICT ASPIRATION PRECAUTIONS, CALL PLACED TO DR DUBOSE.
--- NOTE | 2019-01-17 17:05 | NUR ---
DR DUBOSE RETURNS CALL - INFORMED OF PATIENT'S DYSPHAGIA AND COUGHING WITH ICE CHIPS - ORDER RECEIVED.
--- NOTE | 2019-01-17 17:20 | NUR ---
PATIENT MOUTHING WORD SISTER AND PHONE - SHIPWRIGHT APPRENTICE CALLED PATIENT'S FATHER ET INFORMED HIM OF PATIENT'S REQUEST-STATES THAT THEY ARE ALL COMING BACK TO HOSPITAL CURRENTLY, SHIPWRIGHT APPRENTICE INFORMED PATIENT - NODDED HEAD IN UNDERSTANDING.
--- NOTE | 2019-01-17 18:07 | NUR ---
PATIENT'S FAMILY AT BEDSIDE. PATIENT REQUESTING PER SISTER TO CALL BOYFRIEND, INFORMED HER THAT ONLY FAMILY IS CURRENTLY ALLOWED TO VISIT - PATIENT NODDED HEAD IN UNDERSTANDING.
--- NOTE | 2019-01-17 19:12 | NUR ---
REPORT GIVEN TO KAYCEE LOPEZ. PATIENT RESTING QUIETLY IN BED.
--- NOTE | 2019-01-17 19:15 | NUR ---
CARE ASSUMED. PT. AWAKE, RESPONDS TO NAME APPROPRIATELY. SPEECH - WHISPERS, HARD TO UNDERSTAND, BUT MAKES IT CLEAR WANTS HER CELL PHONE. VERY IMPULSIVE, RESTLESS. LAUGHS QUIETLY, APPEARS SUSPICIOUS. NEEDS FREQUENT REINFORCEMENT. DISCUSSED NPO STATUS DUE TO COUGH AFTER THIN FLUIDS. LUNGS DIMINISHED BILATERALLY. STRONG NON PRODUCTIVE, MOIST. ON ROOM AIR, SATS 96% CARDIAC - HR 110'S - 120'S SPECIALLY WHEN RESTLESS. SBP 120'S. ABDOMEN - SOFT, HYPOACTIVE BOWEL SOUNDS. NPO, DUE TO DIFFICULTY SWALLOWING. GOLEY TO DD WITH CLEAR, YELLOW URINE. SKIN INTACT IV ISTE TO RT BACK OF FOREARM , DRESSING LOOSE, PT. PICKING AT IT, REMOVED. RIJ CENTRAL LINE REMAINS. REPOSITIONS SELF IN BED.
--- NOTE | 2019-01-17 21:34 | NUR ---
BM- MEDIUM SIZE , SOLID, DARK BM. ASSISTED TO BSC, WEAK, UNSTEADY.
[2019-01-18] VITALS (17 sets, daily range): BP systolic 105–126; BP diastolic 56–88
--- NOTE | 2019-01-18 00:45 | NUR ---
PT. TRYING TO GET OUT OF BED, RIPS ALL CABLES WELL FORCEFULLY TUGGING ON REESE CATH. BALLOON DEFLATED AND REESE DC'D. PT. TRYING TO GET OUT OF ROOM, VERY UNSTEADY AND DOES NOT REASON. PT'S MOTHER CALLED AND INFORMED THAT HOSPITALIST HAS BEEN CALLED TO REQUEST SEDATIVE TO HELP WITH PATIENT AGITATION BUT MAYBE A PARENTAL FIGURE WOULD HELP HER CALM DOWN. STATES SHE WILL COME AND VISIT WITH PATIENT. SPOKE TO MAGGIE JACK TAMP OPERATOR REGARDING PATIENT CONDITION AT THIS TIME. ORDER FOR ATIVAN RECEIVED, WILL PROVIDE. SECURITY CALLED TO ASSIST PT. BECOMING BELLIGERENT AND THEY ASSISTED WITH PLACING PT. IN BED.
[2019-01-18] MEDS: PIPERACILLIN-TAZOB 3.375GM 100 ML IV SCH ×4 (00:50→22:00)
[2019-01-18] MEDS: FAMOTIDINE (10MG/ML) 2ML VL IV SCH ×3 (00:50→22:00)
[2019-01-18] MEDS ORDERED: LORazepam 2MG/ML-1ML VIAL IM ONE (00:50)
[2019-01-18] MEDS ORDERED: HALOPERIDOL LACTATE 5 MG/ML INJ VIAL ONE (01:01)
[2019-01-18] MEDS ORDERED: LORazepam 2MG/ML-1ML VIAL ONE (01:04)
--- NOTE | 2019-01-18 01:14 | NUR ---
ATIVAN 0.5 MG IV GIVEN VIA CENTRAL LINE.
--- NOTE | 2019-01-18 01:15 | NUR ---
PARENTS - PT'S PARENTS AT BEDSIDE, UPDATED. PT. AGREES TO GET IN BED ONLY IF BOYFRIEND IS CALLED.
--- NOTE | 2019-01-18 01:38 | NUR ---
PT. AWAKE, HR 107, BP - 111/74, RR 24
[2019-01-18 03:59] LABS: Basophils # (auto) 0 uL; Basophils % (auto) 0.4 % (0.0-2.0); Eosinophils # (auto) 0 uL; Eosinophils % (auto) 0.9 % (0.0-7.0); Hematocrit 39.2 % (36.0-46.0); Hemoglobin 13.4 g/dL (12.2-16.2); Lymphocytes # (auto) 1.3 uL; Lymphocytes % (auto) 23.1 % (10.0-50.0); Mean Corpuscular Hemoglobin 30.7 pg (28.0-32.0); Mean Corpuscular Hgb Conc. 34.2 g/dL (32.0-36.0); Mean Corpuscular Volume 89.7 fL (80.0-100.0); Monocytes # (auto) 0.8 uL; Monocytes % (auto) 14.7 % (0.0-12.0); Neutrophils # (auto) 3.4 uL; Neutrophils % (auto) 60.9 % (37.0-80.0); Nucleated Red Blood Cells % 0.1 %; Platelet Count (auto) 281 10^3/uL (140-450); Red Blood Cells 4.37 10^6/uL (4.0-5.20); Red Cell Distribution Width 13.7 % (11.8-14.3); White Blood Cell 5.5 10^3/uL (4.4-10.8)
[2019-01-18 04:18] LABS: Potassium 3.7 mmol/L (3.5-5.1)
[2019-01-18 04:22] LABS: Albumin 3.1 g/dL (3.4-5.0); BUN/Creatinine Ratio 11.7; Calcium 9.6 mg/dL (8.5-10.1)
[2019-01-18 04:26] LABS: Bilirubin, Total 1.1 mg/dL (0.2-1.0); Total Protein 8.1 g/dL (6.4-8.2)
--- NOTE | 2019-01-18 05:02 | NUR ---
PATIENTS PARENTS AT BESIDE, PT. CALM AND COOPERATIVE.
[2019-01-18] MEDS: D5W/SOD CHL 0.45%/KCL 40MEQ 1,000 ML IV SCH (06:36)
--- NOTE | 2019-01-18 08:00 | NUR ---
OPENING NOTE Received patient in bed resting with father at bedside and holding his hand for comfort/reassurance. Patient alert/oriented X4, no signs of restlessness, able to follow simple commands, pupils reactive to light and equal and speech appropriate/clear and soft spoken. Sinus tachycardia in the high 90's-low 100's on bedside monitor, pulses palpable on upper/lower extremities with no edema observed. Abdomen soft, non tender, non distended, positive bowel sounds to all quadrants with last bowel movement being in AM 01/18/2019 per NOC nurse Willa. Caba catheter removed early this AM secondary to patient pulling on it. Right IJ(TLC): good blood return and flushes easily infusing D5.45 with 40 of KCL at 75ml/hr. Skin intact other than some tattoos and piercing with no sig/symptoms of infection. Educated patient and patients father about using call light for assistance and NPO status. Call light with in reach and bed at lowest position with side rails up X2. Will continue to monitor patient closely.
--- NOTE | 2019-01-18 08:50 | NUR ---
FAMILY Patients mother at bedside with father visiting patient.
--- NOTE | 2019-01-18 10:55 | NUR ---
FAMILY Patients mother let patients boyfriend,Agapito, in to visit with patient and states " Its okay for him to visit today without password. He calms her down."
--- NOTE | 2019-01-18 11:00 | NUR ---
FAMILY Patients mother and father has left the bedside stating "will come back later." Boyfriend remains at bedside.
--- NOTE | 2019-01-18 12:15 | NUR ---
ACTIVITY/LINEN Patient requested to get out of bed to chair. Patient was able to get to chair with moderate assistance secondary to patient not stable on feet. No incident occurred. At this time while patient resting in chair this RN did a complete linen change. Will continue to monitor patient closely.
--- NOTE | 2019-01-18 12:20 | NUR ---
BOYFRIEND Boyfriend, Agapito, has left the bedside. Patient resting comfortably in bed with no signs/symptoms of respiratory distress. Will continue to monitor patient.
--- NOTE | 2019-01-18 12:40 | NUR ---
ELIMINATION Patient requested to get out of bed to use bedside commode was able to voided without difficulty. Self care provided by patient. Will continue to monitor patient closely.
--- NOTE | 2019-01-18 13:10 | NUR ---
ACTIVITY Patient able to get out of chair and back into bed with moderate assistance. Patient unsteady on feet with no incident. Will continue to monitor patient.
--- NOTE | 2019-01-18 13:30 | NUR ---
MD Dr. Coleman at bedside updated on patient condition with new orders, MD to input into system. Patient spoke to patient regarding plan of care. Questions/concerns answered by MD.
[2019-01-18] MEDS ORDERED: CARVEDILOL 3.125 MG TAB PO ONE (13:45)
[2019-01-18] MEDS ORDERED: D5W/SOD CHL 0.45%/KCL 20MEQ 1,000 ML IV SCH (13:45)
--- NOTE | 2019-01-18 14:05 | NUR ---
NEURO Patient alert and oriented X4 with periods of confusion: patient randomly states inappropriate things for example when hanging antibiotic patient said "Its okay to hang it as long as its not dope."
--- NOTE | 2019-01-18 14:35 | NUR ---
FAMILY: SISTER OF PATIENT IN AT BEDSIDE.
--- NOTE | 2019-01-18 14:45 | NUR ---
ELIMINATION Patient requested to get out of bed to use bedside commode, voided. Self care provided by patient. Patient tolerated well with no incident.
--- NOTE | 2019-01-18 14:55 | NUR ---
Nutrition Follow-up Notes Wt.: 62.7 kg Pt's successfully extubated 01/17, sleeping with no family by bedside. pt is currently NPO with EN support temporarily held. Pt's previously on Jevity 1.2 Sam @ 20 ml/hr providing 576 kcal, 27 gms pro [id number] ml free water. Est. Needs: 1550 kcal to 1850 kcal (25-30 kcal/kgBW), 62 gms to 74 gms pro (1.0-1.2 gms/kgBW). Will continue to monitor pertinent labs and reassess nutrient need prn Labs: ASHUTOSH 1.1 H, ALB 3.1 L, AMEENA/LT 93/718 H Skin: Louis scale 15, mod risk, skin intact per rn documentation specialist. GI: Pt had 1 BM today per rn documentation specialist. PES: Increased nutrient needs r/t current medical condition aeb intubated, sedated, mod hypoalbuminemia, NPO with EN support. Altered nutrition related lab values r/t current/chronic medical condition aeb hyperchloremia, low BUN, elev. LFTs, Creatine kinase,hyperbilirubinemia, hypocalcemia and mod hypoalbuminemia Will continue to monitor NPO status, skin status, pertinent labs and weight trend. F/u in 2 to 3 days. Rec.: 1.) Advance gradually to oral diet (Soft Low Fat) when medically appropriate. 2.) If still NPO, consider to resume EN support at lower rate of Jevity 1.2 Sam @ 55 ml/hr goal rate as tolerated when medically appropriate. 3.) If Albumin continues trending down, consider Prostat 1 pkt BID. 4.) Refer to RD for further nutrition educ. and weight monitoring upon discharge. 5.) Continue current plan of care.
--- NOTE | 2019-01-18 15:30 | NUR ---
FAMILY Patients sister as left.
--- NOTE | 2019-01-18 16:25 | NUR ---
SWALLOW EVALUATION Jaylene speech therapist, at bedside updated on patient condition. Patient was able to tolerate pureed with honey thickened liquids.
--- NOTE | 2019-01-18 16:40 | NUR ---
SWALLOW EVALUATED. PATIENT SPEAKS VERY SOFTLY. PATIENT HAS OWN TEETH. ABLE TO TOLERATE PUREE DIET TEXTURE WITH HONEY THICKENED LIQUIDS WITH NO OVERT SIGNS OR SYMPTOMS OF ASPIRATION. PATIENT COUGHED ON THIN LIQUIDS AND NECTAR THICKENED LIQUIDS. NURSING NOTIFIED.
--- NOTE | 2019-01-18 17:10 | NUR ---
ELIMINATION Patient set off bed alarm, attempting to get out of bed to get to bedside commode. Patient assisted to bedside commode and was able to void. Self care provided by patient. Patient tolerated well without incident.
--- NOTE | 2019-01-18 19:15 | NUR ---
open received report from day rn, assumed care of female pt. pt is laying in bed appears to be resting. pt is connected to ICU monitors and vs are stable. no ss of distress noted at this time. pt denied pain at this time. 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 bed is in lowest position, wheels locked, side rails up x2 bed alarm is on. pt is in full view of rn station, will continue to care for and monitor.
--- NOTE | 2019-01-18 19:54 | NUR ---
food at bedside pt dinner tray is at bedside. went to take meal tray away and pt said " can you leave it there i want to eat it in a little bit." pt was told ok no problem and the tray was left at bedside.
[2019-01-18] MEDS: CARVEDILOL 3.125 MG TAB PO SCH (22:00)
--- NOTE | 2019-01-18 23:34 | NUR ---
pt sitting up in bed pt asked for the photos that her nieces zbigniew for her. photos given to pt. pt appeared to be happy. pt was asked if she was having any pain, pt denied having pain at this time. bed alarm on, will continue to monitor.
[2019-01-19] VITALS (19 sets, daily range): BP systolic 96–116; BP diastolic 54–84
--- NOTE | 2019-01-19 01:10 | NUR ---
pt refuses hygiene at this time pt was asked if she would like to freshen up with wash cloths or brush her teeth, pt said later in the morning. pt does not want her sheets or blanket changed at this time.
--- NOTE | 2019-01-19 03:20 | NUR ---
pt is sleeping. pt appears to be sleeping at this time, no ss of distress noted at this time.
[2019-01-19 04:48] LABS: Calcium 9.8 mg/dL (8.5-10.1); Potassium 3.9 mmol/L (3.5-5.1)
[2019-01-19 04:54] LABS: Albumin 3.1 g/dL (3.4-5.0); BUN/Creatinine Ratio 14.9; Bilirubin, Total 1.3 mg/dL (0.2-1.0); Total Protein 8.3 g/dL (6.4-8.2)
[2019-01-19] MEDS: PIPERACILLIN-TAZOB 3.375GM 100 ML IV SCH (06:26)
--- NOTE | 2019-01-19 07:00 | NUR ---
RECEIVED PT, FROM CAR REPAIR SUPERVISOR PT ON 1:1 OBSERVATION A PRECAUTION S/P BEING EXTUBATED AND PENDING PSYCH EVALUATION & CLEARANCE FOR SUICIDE ATTEMPT. PT A+O X 4. DENIES ANY PAIN. CURRENTLY SPEAKING ON A VERY SOFT VOICE, HAS A VERY POOR APPETITE BUT HAS SHOWN MOTIVATION IN SELF CARE HYGIENE. SHE REQUESTED FOR WASH-CLOTHES AND A NEW GOWN TO WASH UP. HER APPETITE MIGHT HAVE TO DO WITH HER NOT LIKING THE SOFT FOOD SHE IS GETTING, SHE SAID SHE DOESN'T LIKE GRITS, SHE SHE SHOWS A LITTLE SIGNS OF FORGETFULNESS, SHE ASKED IF SHE STILL HAD A REESE IN PLACE. I TOLD HER SHE DID NOT, THEN SHE ASKED IF SHE COULD HAVE IT PLACED BACK IN THEN I EXPLAINED TO HER WHY SHE COULD NOT HAVE IT BACK IN. THEN SHE REQUESTED TO USE THE BEDSIDE COMMODE FOR URINE ELIMINATION. ALTHOUGH A LITTLE FORGETFUL HER THOUGHT PROCESS IS QUICK.
[2019-01-19] MEDS: FAMOTIDINE (10MG/ML) 2ML VL IV SCH (09:32)
[2019-01-19] MEDS: CARVEDILOL 3.125 MG TAB PO SCH ×2 (09:33→21:40)
--- NOTE | 2019-01-19 09:48 | NUR ---
CARDIOLOGY MEDICAL HISTORIAN MINNIE JAMISON: I ASKED HER THAT PT'S MOTHER WANTED TO KNOW WHEN WAS PT'S ECHOCARDIOGRAM GOING TO BE REPEATED TO RE-EVALUATE THE EJECTION FRACTION. SHE SAID THAT IT CAN BE DONE AN OUTPATIENT IN 3 MONTHS. I'LL RELATE THE INFORMATION TO PT'S MOTHER. PT DID NOT HAVE ANY QUESTIONS FOR MEDICAL HISTORIAN.
--- NOTE | 2019-01-19 12:30 | NUR ---
MD YAQUELIN JAMISON ON PT HE ASKED PT IF SHE WAS TRYING TO HURT HERSELF WHEN SHE INGESTED THE METHAMPHETAMINES, PT WHISPERED " YES" BUT SHE DID NOT WANT TO HURT HERSELF ANY MORE". THE REST OF HER WHISPERING COULDN'T BE MADE OUT, SHE WAS SPEAKING VERY FAST. . STATES WILL ASK HER LATER ONCE HER VOICE IS BACK. I UPDATED MD ON PT'S CONDITION, POOR APPETITE, ACTIVITY LEVEL (HYGIENE INVOLVEMENT) WILLING TO START PHYSICAL THERAPY TO GET HER STRENGTH BACK. PT IS TELEMETRY STATUS AWAITING TO BE TRANSFERRED WITH A SITTER FOR SAFETY PRECAUTIONS.
--- NOTE | 2019-01-19 12:40 | NUR ---
PSYCHOSOCIAL PT'S BOYFRIEND ULICES VISITING PT'S FACE LIT UP WITH DELIGHT & KARTIK ONCE HE CAME IN.
[2019-01-19] MEDS ORDERED: LEVOFLOXACIN 500 MG TAB PO ONE (12:45)
--- NOTE | 2019-01-19 14:45 | NUR ---
PHYSICAL THERAPY AMBULATED 2 LAPS WITH PHYSICAL THERAPY AROUND NURSES STATION, PT TOLERATED WELL. HR INCREASED TO 120'S, NO C/O CHEST PAIN OR S.O.B. PT'S GAIT STRONG WITH WALKER, PT STRONGER THAN THIS MORNING. PT UP IN CHAIR DRAWING PICTURES ON A CLIPBOARD. PT MAKING SWANS (FIGURES) WITH PLAIN PICES OF PAPER.
--- NOTE | 2019-01-19 17:30 | NUR ---
PT GAINING HER VOICE BACK. ABLE TO SPEAK SOME WORDS. ENCOURAGED HER TO EAT SOME ICE CHIPS. I ENCOURAGED HER TO MAKE EVERY EFFORT TO SPEAK WHEN EL BREEN IS ROUNDING, SO HE CAN ORDER THE TELE- PSYCHIATRIC EVALUATION SO SHE CAN GET CLEARANCE AND MOVE ON WITH THE POC. PT VERBALIZED UNDERSTANDING AND SEEM TO WANT TO SPEAK MORE IN A LOUD VOICE THAN PREVIOUSLY ATTEMPTED.
--- NOTE | 2019-01-19 18:09 | NUR ---
TRANSFERRED TO TELEMETRY WITH TELE BOX VIA ACCOMPANIED WITH PT'S SISTER. ALL PT'S BELONGINGS TAKEN WITH PT. PT WAS RECEIVED BY PT'S SITTER. ASSISTED PT TO HER BED SAFELY. PT WAS WONDERING IF SHE COULD TAKE A SHOWER. I INSTRUCTED HER TO ASK HER DOCTOR FOR SAFETY REASONS. PT HAS A SITTER A SUICIDE PRECAUTION UNTIL SHE GETS MEDICAL CLEARANCE.
--- NOTE | 2019-01-19 18:10 | NUR ---
ON UNIT PT ON UNIT FROM ICU
--- NOTE | 2019-01-19 18:25 | NUR ---
FAMILY SISTER, DARIA, CONCERNED ABOUT PATIENT BEING DISCHARGED/TRANSFERRED TO REHAB. SISTER REQUESTING TO SPEAK TO COMPOSITION WORKER ABOUT DISCHARGE PLANNING.
--- NOTE | 2019-01-19 19:35 | NUR ---
Opening Shift Note Assumed care of patient, awake and alert oriented x4. No S/S of distress/SOB or pain noted. Family at the bedside. Bed is in lowest locked position with bed rails up x2 and call light is within reach of the patient. Instructed on POC and to call for assist PRN.
[2019-01-20 04:11] VITALS: BP 117/70
[2019-01-20 06:42] LABS: Potassium 3.7 mmol/L (3.5-5.1)
[2019-01-20 06:48] LABS: Albumin 3.4 g/dL (3.4-5.0); BUN/Creatinine Ratio 22.2; Bilirubin, Total 0.9 mg/dL (0.2-1.0); Calcium 9.7 mg/dL (8.5-10.1); Total Protein 8.7 g/dL (6.4-8.2)
--- NOTE | 2019-01-20 07:45 | NUR ---
Opening Shift Note Assumed care of patient, awake, alert and oriented. No S/S of distress/SOB or pain. Bed in low/locked position, bed rails up x2. Sitter at bedside. Instructed on POC and to call for assist PRN with call light within reach. All questions/concerns answered. Will continue to monitor for changes Q1hr and PRN.
[2019-01-20 08:36] VITALS: BP 114/62
[2019-01-20] MEDS: LEVOFLOXACIN 500 MG TAB PO SCH (09:31)
[2019-01-20] MEDS: LISINOPRIL 5 MG TAB PO SCH (09:32)
[2019-01-20] MEDS: CARVEDILOL 3.125 MG TAB PO SCH ×2 (09:32→21:31)
--- NOTE | 2019-01-20 10:30 | NUR ---
AT BEDSIDE DR GALLEGOS AT BEDSIDE DISCUSSING POC WITH PATIENT AND FAMILY. ALL QUESTIONS/CONCERNS ANSWERED. NEW ORDERS RECEIVED/CARRIED OUT.
--- NOTE | 2019-01-20 11:15 | NUR ---
TELE PSYCH CALLED IN TELE PSYCH CONSULT TO DAIJA AT
[2019-01-20 13:00] VITALS: BP 107/66
--- NOTE | 2019-01-20 14:46 | NUR ---
Nutrition Follow-up Notes Wt.: 56.0 kg as of yesterday Pt's sitting up on bed, family members and sitter at bedside, denies any discomfort when rounded this morning. 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 Pt's usually has fair appetite, tries to eat meals regularly, allergic to shrimp, raw tomatoes and not into any special diets motor equipment captain. Pt's currently on 2 gms Na diet with inadequate PO intake aeb 50% ave. consumed meals (x3) since yesterday. Encouraged to increase food intake through small frequent meals as tolerated. Provide verbal and written nutrition educ. re: current therapeutic diet and she verbalized understanding. Noted pt's for active Tele Psych consult. Est. Needs: 1550 kcal to 1850 kcal (25-30 kcal/kgBW), 62 gms to 74 gms pro (1.0-1.2 gms/kgBW). Will continue to monitor pertinent labs and reassess nutrient need prn Labs: AST/ALT 198/583 H, ALP 177 H, Tpro 8.7 H Skin: Louis scale 20, low risk, skin intact per documentation specialist. GI: Pt had 1 BM 01/17/19 per documentation specialist. PES: Resolved: Increased nutrient needs r/t current medical condition aeb intubated, sedated, mod hypoalbuminemia, NPO with EN support. Altered nutrition related lab values r/t current/chronic medical condition aeb hyperchloremia, low BUN, elev. LFTs, Creatine kinase,hyperbilirubinemia, hypocalcemia and mod hypoalbuminemia Will continue to monitor PO intake, skin status, pertinent labs and weight trend. F/u in 3 to 5 days. Rec.: 1.) If LFTs remain elev. consider Low Fat diet with Ensure Enlive 1 carton BID. 2.) Continue close supervision with meals 3.) Refer to RD for further nutrition educ. and weight monitoring upon discharge. 4.) Continue current plan of care.
--- NOTE | 2019-01-20 16:13 | NUR ---
re-assessment Patient is alert and oriented. Patint informed me she was suicidal. Patient informed me she bought a large quantity of meth and mixed it in water and drank it. Patient informed me she thought her family did not care about her. Patient informed me she regretted taking the meth as soon as she drank it. Patient has a history of ADHD and depression. Patient does not have a therapist. I have provided patient with a list of local therapist. Patient is not suicidal now. Patient has no ideas of self harm or harming others. Patient was waiting for tele psych earlier today. Patient will need psych placement to help her deal with her family issues. Patient does have good family support. Patient may be able to commit to a safety plan with family. Addendum: 01/20/19 at 1618 by Payal KIM Amended: Links added.
--- NOTE | 2019-01-20 16:21 | NUR ---
PICC DC PICC LINE PER MD ORDER. PATIENT TOLERATED WELL. WILL CONTINUE TO MONITOR FOR CHANGES.
[2019-01-20 16:45] VITALS: BP 103/54
--- NOTE | 2019-01-20 18:40 | NUR ---
TELE PSYCH TELE PSYCH REPORT IN CHART
[2019-01-20 22:00] VITALS: BP 114/63
[2019-01-21] VITALS (8 sets, daily range): BP systolic 98–108; BP diastolic 47–60
[2019-01-21 06:41] LABS: Potassium 3.7 mmol/L (3.5-5.1)
[2019-01-21 06:49] LABS: Albumin 3.3 g/dL (3.4-5.0); BUN/Creatinine Ratio 19.7; Bilirubin, Total 0.8 mg/dL (0.2-1.0); Calcium 9.5 mg/dL (8.5-10.1); Total Protein 8.2 g/dL (6.4-8.2)
--- NOTE | 2019-01-21 07:30 | NUR ---
Opening Shift Note Assumed care of patient, awake and alert. No S/S of distress/SOB or pain. Instructed on POC and to call for assist PRN, will continue to monitor for changes Q1hr and PRN.
[2019-01-21] MEDS: CARVEDILOL 3.125 MG TAB PO SCH ×2 (10:03→22:00)
[2019-01-21] MEDS: LEVOFLOXACIN 500 MG TAB PO SCH (10:03)
[2019-01-21] MEDS: LISINOPRIL 5 MG TAB PO SCH (10:04)
--- NOTE | 2019-01-21 14:56 | NUR ---
I received a call from Yolande at [facility]-I requested a list of participating in-patient psychiatric facilities-she will have someone from behavioral health give me a call.
--- NOTE | 2019-01-21 16:29 | NUR ---
I received a message from Susannah [facility] letting me know that [facility] are contracted with [facility], [facility], and [facility].
--- NOTE | 2019-01-21 19:30 | NUR ---
Opening Shift Note Assumed care of patient, awake and alert. Very pleasant and seems to be in good spirits. No S/S of distress/SOB or pain. Family at bedside. Sitter in room as well. Will bring jello and juice per pt request. Instructed on POC and to call for assist PRN, will continue to monitor for changes Q1hr and PRN.Call light within reach.
[2019-01-22 05:00] VITALS: BP 98/49
--- NOTE | 2019-01-22 06:26 | NUR ---
Denied any pain. No distress throughout night. Sitter at bedside. Call light within reach
[2019-01-22 07:12] LABS: Albumin 3.2 g/dL (3.4-5.0); Calcium 9.2 mg/dL (8.5-10.1); Potassium 3.5 mmol/L (3.5-5.1)
[2019-01-22 07:16] LABS: BUN/Creatinine Ratio 17.1; Bilirubin, Total 0.7 mg/dL (0.2-1.0); Total Protein 7.9 g/dL (6.4-8.2)
--- NOTE | 2019-01-22 08:00 | NUR ---
Opening Shift Note Assumed care of patient, awake and alert. No S/S of distress/SOB or pain. With sitter at bedside. Will continue to monitor for changes Q1hr and PRN.
[2019-01-22 08:20] VITALS: BP 87/49
[2019-01-22] MEDS: CARVEDILOL 3.125 MG TAB PO SCH ×2 (10:00→22:00)
[2019-01-22] MEDS: LISINOPRIL 5 MG TAB PO SCH (10:00)
--- NOTE | 2019-01-22 10:00 | NUR ---
Held antihypertensive medication at this time for decrease in BP. Dr. Remy made aware.
--- NOTE | 2019-01-22 10:30 | NUR ---
Family at bedside.
[2019-01-22 12:15] VITALS: BP 95/55
--- NOTE | 2019-01-22 14:00 | NUR ---
WOUND CARE NOTE: Wound care team previously rounding on patient due to low louis and intubation status. Patient has been extubated and down graded to telemetry. Patient is alert and oriented, denies pain. Last Louis score is 21. Patient with no skin breakdown. No further need by wound care team. Discussed with bedside RNKim.
[2019-01-22 16:35] VITALS: BP 106/63
[2019-01-22 18:50] VITALS: BP 106/60
--- NOTE | 2019-01-22 19:50 | NUR ---
Opening Shift Note Assumed care of patient, awake and alert. No S/S of distress/SOB or pain. Insructed on POC and to callfor assist PRN, will continue to monitor for changes Q1hr and PRN. Sitter at bedside.
[2019-01-22 21:13] VITALS: BP 97/46
--- NOTE | 2019-01-22 22:22 | NUR ---
Held Coreg due to low BP 106/60 and heart of 67.
[2019-01-23 04:28] VITALS: BP 93/53
[2019-01-23 07:15] LABS: Chloride 104 mmol/L (98-107); Potassium 3.6 mmol/L (3.5-5.1); Sodium 138 mmol/L (136-145)
[2019-01-23 07:24] LABS: Alanine Aminotransferase 260 U/L (13-56); Albumin 3.3 g/dL (3.4-5.0); Alkaline Phosphatase 126 U/L (45-117); Anion Gap 6 (5-15); Aspartate Aminotransferase 54 U/L (15-37); BUN/Creatinine Ratio 19.4; Bilirubin, Total 0.6 mg/dL (0.2-1.0); Blood Urea Nitrogen 14 mg/dL (7-18); Calcium 9.2 mg/dL (8.5-10.1); Carbon Dioxide 28 mmol/L (21-32); GFR African American 132 mL/min; GFR Non-African American 109 mL/min; Glucose 89 mg/dL (74-106); Total Protein 7.8 g/dL (6.4-8.2)
[2019-01-23 07:25] LABS: Basophils # (auto) 0.1 uL; Basophils % (auto) 1.1 % (0.0-2.0); Eosinophils # (auto) 0.1 uL; Hematocrit 40.9 % (36.0-46.0); Hemoglobin 13.6 g/dL (12.2-16.2); Lymphocytes # (auto) 2.6 uL; Lymphocytes % (auto) 52.5 % (10.0-50.0); Mean Corpuscular Hemoglobin 29.8 pg (28.0-32.0); Mean Corpuscular Hgb Conc. 33.3 g/dL (32.0-36.0); Mean Corpuscular Volume 89.4 fL (80.0-100.0); Monocytes # (auto) 0.4 uL; Monocytes % (auto) 8.6 % (0.0-12.0); Neutrophils # (auto) 1.8 uL; Neutrophils % (auto) 35.8 % (37.0-80.0); Nucleated Red Blood Cells % 0.2 %; Platelet Count (auto) 428 10^3/uL (140-450); Red Blood Cells 4.58 10^6/uL (4.0-5.20); Red Cell Distribution Width 13.5 % (11.8-14.3)
--- NOTE | 2019-01-23 08:00 | NUR ---
Opening Shift Note Assumed care of patient, awake and alert. No S/S of distress/SOB or pain. With sitter at all times. Instructed on POC and to call for assist PRN, will continue to monitor for changes Q1hr and PRN.
[2019-01-23 09:00] VITALS: BP 103/52
[2019-01-23] MEDS: CARVEDILOL 3.125 MG TAB PO SCH ×2 (10:00→21:45)
[2019-01-23] MEDS: LISINOPRIL 5 MG TAB PO SCH (10:00)
--- NOTE | 2019-01-23 12:01 | NUR ---
Nutrition Follow-up Notes Wt.: 56.4 kg Pt's awake and oriented when rounded this am. per pt no N.V fair appetite. Pt's currently on 2 gms Na diet with inadequate PO of 50% x 4 per RN doc. Noted pt's for active Tele Psych consult. Est. Needs: 1550 kcal to 1850 kcal (25-30 kcal/kgBW), 62 gms to 74 gms pro (1.0-1.2 gms/kgBW). Will continue to monitor pertinent labs and reassess nutrient need prn Labs: ALP 126 H, ALB 3.3 L. Skin: Louis scale 22, low risk, skin intact per builder beam. GI: Pt had 1 BM 01/17/19 per builder beam. PES: Resolved: Increased nutrient needs r/t current medical condition aeb intubated, sedated, mod hypoalbuminemia, NPO with EN support. Altered nutrition related lab values r/t current/chronic medical condition aeb hyperchloremia, low BUN, elev. LFTs, Creatine kinase,hyperbilirubinemia, hypocalcemia and mod hypoalbuminemia Will continue to monitor PO intake, skin status, pertinent labs and weight trend. F/u in 3 to 5 days. Rec.: 1.) If LFTs remain elev. consider Low Fat diet with Ensure Enlive 1 carton BID. 2.) Continue close supervision with meals 3.) Refer to RD for further nutrition educ. and weight monitoring upon discharge. 4.) Continue current plan of care.
[2019-01-23 13:00] VITALS: BP 112/64
[2019-01-23 17:00] VITALS: BP 108/62
--- NOTE | 2019-01-23 21:45 | NUR ---
Medication held. 6.25 Coreg held due to normal BP and Heart rate
[2019-01-24 05:00] VITALS: BP 102/62
[2019-01-24 06:26] LABS: Basophils # (auto) 0 uL; Basophils % (auto) 0.7 % (0.0-2.0); Eosinophils # (auto) 0.1 uL; Eosinophils % (auto) 1.4 % (0.0-7.0); Hematocrit 38.2 % (36.0-46.0); Hemoglobin 12.9 g/dL (12.2-16.2); Lymphocytes # (auto) 2.4 uL; Lymphocytes % (auto) 43.6 % (10.0-50.0); Mean Corpuscular Hemoglobin 29.8 pg (28.0-32.0); Mean Corpuscular Hgb Conc. 33.8 g/dL (32.0-36.0); Mean Corpuscular Volume 88.2 fL (80.0-100.0); Monocytes # (auto) 0.4 uL; Monocytes % (auto) 6.6 % (0.0-12.0); Neutrophils # (auto) 2.6 uL; Neutrophils % (auto) 47.7 % (37.0-80.0); Nucleated Red Blood Cells % 0.1 %; Platelet Count (auto) 430 10^3/uL (140-450); Red Blood Cells 4.33 10^6/uL (4.0-5.20); White Blood Cell 5.5 10^3/uL (4.4-10.8)
[2019-01-24 06:35] LABS: Albumin 3.2 g/dL (3.4-5.0); Potassium 3.5 mmol/L (3.5-5.1)
[2019-01-24 06:38] LABS: BUN/Creatinine Ratio 19.4; Bilirubin, Total 0.5 mg/dL (0.2-1.0); Total Protein 7.4 g/dL (6.4-8.2)
[2019-01-24 09:00] VITALS: BP 101/61
[2019-01-24] MEDS: LISINOPRIL 5 MG TAB PO SCH (10:00)
[2019-01-24] MEDS: CARVEDILOL 3.125 MG TAB PO SCH (10:00)
--- NOTE | 2019-01-24 11:30 | NUR ---
5150 hold evaluation expires today. Dr. Avina requested a new one for Psych Facility placement. Cheri LOPEZ charge aware.
--- NOTE | 2019-01-24 11:50 | NUR ---
Discontinued Telemetry as ordered. Tele box returned to ICU.
[2019-01-24 12:57] VITALS: BP 92/56
--- NOTE | 2019-01-24 15:00 | NUR ---
Followed up called to [facility]. Per Benito from [facility] Pt will be put in the transfer center list and will call when there is a bed available[facility] at the moment.
[2019-01-24 17:46] VITALS: BP_SYST 115; BP_SYST 121; BP_DIAS 65; BP_DIAS 70
--- NOTE | 2019-01-24 18:29 | NUR ---
5150 hold evaluation done.
--- NOTE | 2019-01-24 19:15 | NUR ---
OPENING SHIFT NOTE Assumed care of patient who is A&Ox4. Currently on RA with no s/s of distress or SOB. Denies pain at this time. Patient is capable of ambulating independently. Patient has been medically cleared, and currently has no IV access. Sitter is present at bedside for patient safety d/t suicide attempt resulting in this hospital stay. Bed is in low locked position with side rails up x2. Call light is within reach. Will continue to monitor for changes PRN.
--- NOTE | 2019-01-24 20:30 | NUR ---
SHOWER Patient provided towels as requested and showered independently.
[2019-01-24 21:50] VITALS: BP 121/79
[2019-01-24] MEDS ORDERED: CARVEDILOL 3.125 MG TAB PO SCH (22:00)
--- NOTE | 2019-01-24 23:00 | NUR ---
ROUNDS Patient is awake and alert. No s/s of distress noted. Denies pain at this time. Encouraged to call for assistance when needed. Verbalizes understanding.
[2019-01-25 05:45] VITALS: BP 107/47
--- NOTE | 2019-01-25 08:05 | NUR ---
Opening Note Assumed care of patient, she is A & O x4, patient is comfortable at this time, when asked if she feels like harming herself or anyone else at this time, patient states "No, I haven't felt like that since I got here." Sitter is at bedside, bed is in low, locked position, call light within reach. Patient has belongings at bedside and personal phone. Patient talks to family often. POC discussed, patient is aware she is waiting for a bed at a behavioral health facility. Will continue to monitor Q1h and PRN.
--- NOTE | 2019-01-25 08:21 | NUR ---
Followed up called to [facility], [facility] and [facility]. Per Kristyn from [facility] there is 12 patients ahead of her in the transfer center list and will call when there is a bed available. Kristyn stated there is no need to call or faxed everyday because Pt is already on the transfer center list. [facility] and [facility] do not have beds available at the moment. Rodrigo Mcmullen.
[2019-01-25 08:28] VITALS: BP 96/45
--- NOTE | 2019-01-25 09:50 | NUR ---
Patient BP reading 96/45 (MAP 62), HR 55 per [facility] TRIMMER vitals. Recheck per this RN, 96/56, HR 60. Will hold BP meds Coreg and Zestril per orders as systolic is below 100. Patient also states "I get dizzy when I get up too fast." Educated patient to get up slowly, sit at bedside until lightheadedness subsides. Will continue to monitor patient.
[2019-01-25 09:55] VITALS: BP 96/56
[2019-01-25] MEDS ORDERED: LISINOPRIL 5 MG TAB PO SCH (10:00)
--- NOTE | 2019-01-25 11:30 | NUR ---
Notified Dr. Reno regarding patient BP and meds being held this morning.
[2019-01-25 13:28] VITALS: BP 117/54
--- NOTE | 2019-01-25 14:51 | NUR ---
Assessment Pt is an 86 yr old pt who is disoriented and confused. Pt cannot hear, has a hard time seeing, and when she reads things off a paper, she can't understand the message. When asked questions, pt often stated that she can't remember a lot of things "since the stroke." Pt had a notepad in her purse with her son Idris's information whom she lives with. Pt stated that SW can call her son and talk to him. Pt's son's phone number is [phone]. SW called Idris and was able to ask assessment questions. Pt's son stated that his mom lives with him and that he takes care of the cooking, cleaning etc. He has a maintenance department manager job so they are currently looking into maintenance department manager care givers when he is not around. Pt's son stated that his mom is able to walk with a cane and uses a w/c for long distances. Pt's son stated that he called 911 when his mom stated having a seizure and that she was admitted from there. Pt's son did not know the pt's Primary care physician but stated that they practice medicine at [facility]. Pt's son stated that there is no advance directive on file but that he would be interested in receiving a form to fill out. JENNY informed pt's son that SW left the AD form with the pt on her bedside table. Pt's son is able to transport pt home. Addendum: 01/25/19 at 1501 by DOC HENNESSY SS Amended: Links added. Addendum: 01/25/19 at 1524 by DOC KIM This assessment was input for the wrong pt. F/U note will be written
--- NOTE | 2019-01-25 16:02 | NUR ---
Ambulated with patient around the nursing units, patient talkative, no s/s of distress. Patient comfortable walking independently. Will continue to monitor patient.
[2019-01-25 16:40] VITALS: BP 118/70
[2019-01-25] MEDS: Ensure Enlive Chocolate 8oz Bottle PO SCH (18:00)
--- NOTE | 2019-01-25 18:27 | NUR ---
Reassessment Pt is a 23 year old alert and oriented female. Pt was admitted due to a drug overdose. SW discussed drug use and overdose with pt. Pt stated that she has had depression and suicidal thoughts off and on from the time that she was 14. Pt stated that she was feeling like a burden on her family and like no one loved her so she wanted to kill herself. Pt stated that shortly after she realized what a mistake she had made and that she wanted to live. Pt called her boyfriend to have her taken to the hospital. Pt has been admitted 14 days. Pt stated that she has a huge desire to live right now and is willing to take all the prescribed medication, go to therapy, and do whatever she can do to get better. Pt stated that she has been setting personal goals for herself. Pt has a short term goal of going to [employer] for cosmetology and in 10 years would like to move to [place] and work up there. Pt is interested in getting a service dog, SW stated that she would need to talk with her primary care doctor to get an order. SW provided pt with community resources for community mental health and drug addiction programs. Pt states that she has a good support system with family and friends and she does know that they love her and want her around. Addendum: 01/25/19 at 1837 by DOC KIM Amended: Links added.
--- NOTE | 2019-01-25 20:00 | NUR ---
Opening Shift Note Assumed care of patient, awake and alert. No S/S of distress/SOB or pain. Insructed on POC and to callfor assist PRN, will continue to monitor for changes Q1hr and PRN.
--- NOTE | 2019-01-25 21:30 | NUR ---
PATIENT AMBULATED AROUND HOSPITAL. PATIENT REQUESTED TO AMBULATE AROUND HOSPITAL TO "GET STRENGTH BACK". ASSISTED PATIENT AND WALKED PATIENT FOR 2 LAPS AROUND. PATIENT TOLERATED WELL AND PLACED BACK INTO BED. WILL CONTINUE TO MONITOR.
[2019-01-25 22:00] VITALS: BP 96/53
[2019-01-26] VITALS (7 sets, daily range): BP systolic 94–109; BP diastolic 44–73
[2019-01-26 04:42] LABS: Albumin 3.4 g/dL (3.4-5.0); Potassium 4.1 mmol/L (3.5-5.1)
[2019-01-26 04:46] LABS: BUN/Creatinine Ratio 17.6; Bilirubin, Total 0.4 mg/dL (0.2-1.0); Total Protein 7.4 g/dL (6.4-8.2)
--- NOTE | 2019-01-26 07:30 | NUR ---
Opening Shift Note Assumed care of patient, Patient currently sleeping, breathing even unlabored, easily awakened via verbal stimuli, alert and oriented x4. No S/S of distress/SOB or pain reported at this time, no currently suicide ideation reported by patient, safety leader at bedside for safety . Instructed on POC and to call for assist PRN, call light within reach, will continue to monitor for changes Q1hr and PRN.
[2019-01-26] MEDS: Ensure Enlive Chocolate 8oz Bottle PO SCH ×2 (08:00→18:00)
--- NOTE | 2019-01-26 10:56 | NUR ---
D/C Planning Followed up call to [facility] there is no beds available. Contacted [facility]:) was unable to get a hold of intake I left a voicemail at 9:30am and did another followed up call at 10:32 and left another voicemail. Contacted [facility]:) Fax:( [phone]) faxed medial records spoke to [facility]. Per [facility] referral was received and reviewed and they are unable to accept Pt due to suicidal ideation. Informed SS [place].
--- NOTE | 2019-01-26 12:43 | NUR ---
Nutrition Follow-up Notes Wt.: 55.6 kg Pt denies any discomfort earlier, currently on Regular Low Fat diet with Ensure Enlive 1 carton BID, has inadequate PO intake <50% (x6) in last 3 days. Encouraged to increase food intake through small frequent meals as tolerated. Noted pt's for active Tele Psych consult. Est. Needs: 1550 kcal to 1850 kcal (25-30 kcal/kgBW), 62 gms to 74 gms pro (1.0-1.2 gms/kgBW). Will continue to monitor pertinent labs and reassess nutrient need prn Labs: Pertinent labs wnl except for Anion gap 4 L, ALT 138 H; Alb 3.3 L. Skin: Louis scale 18, mod risk, skin intact per machine plug shaper. GI: Pt had 1 BM 01/25/19 per machine plug shaper. PES: Resolved: Increased nutrient needs r/t current medical condition aeb intubated, sedated, mod hypoalbuminemia, NPO with EN support. Altered nutrition related lab values r/t current/chronic medical condition aeb hyperchloremia, low BUN, elev. LFTs, Creatine kinase,hyperbilirubinemia, hypocalcemia and mod hypoalbuminemia Will continue to monitor PO intake, skin status, pertinent labs and weight trend. F/u in 3 to 5 days. Rec.: 1.) Continue close supervision with meals. 2.) Refer to RD for further nutrition educ. and weight monitoring upon discharge. 3.) Continue current plan of care.
--- NOTE | 2019-01-26 16:30 | NUR ---
ACTIVITY PT AMBULATING, ACCOMPANIED BY SITTER FOR SAFETY, GAIT STEADY, NO DISTRESS NOTED AT THIS TIME, CONT CARE
--- NOTE | 2019-01-26 19:40 | NUR ---
received pt from day rn poc reviewed
--- NOTE | 2019-01-26 20:00 | NUR ---
pt observed resting with hob up resp even and unlabored, no c/o discomfort, sitter at bedside for pts safety
[2019-01-27 05:17] VITALS: BP 94/54
--- NOTE | 2019-01-27 06:09 | NUR ---
RESTING COMFORTABLE WITH HOB UP NO S/S OF ANXIETY NOR SUICIDE THOUGHTS, SITTER AT BEDSIDE FOR PTS SAFETY
--- NOTE | 2019-01-27 06:49 | NUR ---
report given to am nruse poc reviewed
--- NOTE | 2019-01-27 07:25 | NUR ---
PT AWAKE, ALERT, ORIENTEDx4. DENIES ANY DISCOMFORT, EFFORTLESS BREATHING ON ROOM AIR, DENIES ANY DISCOMFORT. PT UNDER DIRECT OBSERVATION.
[2019-01-27 09:00] VITALS: BP 100/40
[2019-01-27] MEDS: Ensure Enlive Chocolate 8oz Bottle PO SCH ×2 (09:48→18:44)
[2019-01-27 13:00] VITALS: BP 102/45
[2019-01-27 16:55] VITALS: BP 105/51
--- NOTE | 2019-01-27 18:40 | NUR ---
1715: TELE PSYCH CONSULTATION REQUEST INPUT. REQUEST MADE- ED TRANSPORTER MYESHA. 1800: DR. LEE CALLED, PT'S STATUS AND REPORT GIVEN UPON REQUEST, QUESTIONS AND CONCERNS ADDRESSED. DR. LEE TO FAX RESULTS FROM CONSULTATION.
--- NOTE | 2019-01-27 19:50 | NUR ---
Opening Shift Note Assumed care of patient, awake and alert. No S/S of distress/SOB or pain. Instructed on POC and to call for assist PRN, will continue to monitor for changes Q1hr and PRN. Sitter at bedside.
[2019-01-27 20:00] VITALS: BP 98/59
[2019-01-27 21:59] VITALS: BP 98/59
--- NOTE | 2019-01-28 01:00 | NUR ---
patient requested to walk around the unit. assisted patient to walk around the unit.
--- NOTE | 2019-01-28 01:15 | NUR ---
patient back in bed with call light within reach and sitter at bedside. patient denies any signs of suicide or harm to herself or others. Patient also stated "I feel anxious because i might be going home tomorrow." provided patient with a quiet environment.
--- NOTE | 2019-01-28 07:31 | NUR ---
REPORT GIVEN TO DAY SHIFT RN
--- NOTE | 2019-01-28 08:38 | NUR ---
SPOKE TO TOM AT [facility] – [place], [place]; REQUESTED 01/27/19 TELE PSYCH REPORT. FAX# PROVIDED, WILL SEND FAX.
[2019-01-28 09:00] VITALS: BP 95/59
[2019-01-28] MEDS: Ensure Enlive Chocolate 8oz Bottle PO SCH (09:20)
--- NOTE | 2019-01-28 10:57 | NUR ---
TELE PSYCH REPORT MADE AWARE TO DR. REYNA MD IN TO SEE PT, EVALUATION. CALLED MOTHER CAROLYN, BEFORE DC, S/S TO EVALUATE PT FOR SAFETY. SW AWARE.
[2019-01-28 13:00] VITALS: BP 99/48
--- NOTE | 2019-01-28 14:44 | NUR ---
PT AWAITING S/S OUTPATIENT PLACEMENT, AND SAFETY EVALUATION.
--- NOTE | 2019-01-28 16:24 | NUR ---
PER JENNY PHILIP, PT IS CLEARED FOR DC, RESOURCE INFORMATION DELIVERED AND WILL BE PROVIDED TO MOTHER UPON [place]. MARINA PORTER HAVE SPOKEN TO PT'S MOTHER AND MADE ARRANGEMENTS FOR DC. AWAITING FOR MOTHER TO ARRIVE FOR TRANSPORTATION.
[2019-01-28 17:00] VITALS: BP 99/56
--- NOTE | 2019-01-28 18:53 | NUR ---
DISCHARGE INSTRUCTIONS PROVIDED TO PT AND MOTHER WHO WILL BE PROVIDING TRANSPORT. PT AND MOTHER VERBALIZED UNDERSTANDING FOR PRESCRIPTION ORDERS AND FOLLOW UP APPOINTMENT WITH PRIMARY CARE PROVIDER AND PSYCHIATRIST. EDUCATIONAL MATERIAL PROVIDED, QUESTIONS AND CONCERNS ADDRESSED. PT SAFELY ESCORTED OUT OF UNIT VIA AMBULATION.
== END 2019-01-28 19:00 | disposition home or self-care (01) | DRG 917 ==
LOC: EDBD 16:19 → ER 16:37 → MERGE 16:38 → TELE 16:38 → ICU WEST 01-12 05:59 → TELE-WESTW 01-13 22:17 → ICU WEST 01-13 23:02 → TELE-CENTR 01-19 18:14 → CENTRAL 01-24 13:14
PROVIDERS: ADMIT Nurse Practitioner Acute Care; ATTEND Internal Medicine
PROC: 5A1955Z Respiratory Ventilation, Greater than 96 Consecutive Hours (ICD-10-PCS; principal; 2019-01-11)
PROC: 0BH17EZ Insertion of Endotracheal Airway into Trachea, Via Natural or Artificial Opening (ICD-10-PCS; 2019-01-11)
PROC: 02HV33Z Insertion of Infusion Device into Superior Vena Cava, Percutaneous Approach (ICD-10-PCS; 2019-01-11)
DX: T43.622A Poisoning by amphetamines, intentional self-harm, initial encounter (principal); J96.00 Acute respiratory failure, unspecified whether with hypoxia or hypercapnia; K72.00 Acute and subacute hepatic failure without coma; N17.0 Acute kidney failure with tubular necrosis; J69.0 Pneumonitis due to inhalation of food and vomit; A41.9 Sepsis, unspecified organism; G92 Toxic encephalopathy; I50.21 Acute systolic (congestive) heart failure; R57.9 Shock, unspecified; M62.82 Rhabdomyolysis; I42.7 Cardiomyopathy due to drug and external agent; T14.91XA Suicide attempt, initial encounter; F15.10 Other stimulant abuse, uncomplicated; Z79.899 Other long term (current) drug therapy; I11.0 Hypertensive heart disease with heart failure; F32.9 Major depressive disorder, single episode, unspecified; Y92.89 Other specified places as the place of occurrence of the external cause
CPT/HCPCS: 31500; 36415; 36556; 36600; 51702; 70450; 71045; 76705; 80048; 80053; 80074; 80307; 80320; 80329; 81001; 82550; 82805; 82962; 83605; 83735; 83880; 84100; 84443; 84484; 84702; 85025; 85610; 85730; 87040; 87070; 87081; 87205; 92610; 93005; 93306; 94002; 94003; 94640; 94761; 96361; 96365; 96375; 97116; 97163; 97530; 99291; G0378; J0330; J1450; J2250; J2543; J2704; J3480; J3490; J7060